=== PATIENT | female | born 1985 | race Caucasian/White ===

== ENCOUNTER 2016-11-19 09:37 | Inpatient (IN) | payer OTHER ==
[~2016-11-19] VITALS: Ht 167.6 cm; Wt 89.1 kg
[2016-11-19] VITALS (16 sets, daily range): BP systolic 90–143; BP diastolic 30–88
--- NOTE | ~2016-11-19 | PR ---
[place], [place] PROGRESS NOTE NAME: [facility] [id number] UNIT #: [id number] ROOM: [place] [address] DOCTOR: DALLAS BARNHART MD,STARR BIRTHDATE: [birth year] DOS: 11/20/2016 PULMONARY CRITICAL EVALUATION AND MANAGEMENT SUBJECTIVE: She has bronchoscopy that was done yesterday. The reduction of the hemoptysis noted, but the resolution still noted incomplete. The patient is continued on mechanical ventilation and feeding. She was noted elevation of temperature rectally 102.3 degrees Fahrenheit, currently noted afebrile. She has been continued with intravenous Diprivan for the sedation purposes. She has not been noted any acute hemodynamic instability as well. The mental status has been noted appropriate with reduction of the sedation. OBJECTIVE: VITAL SIGNS: The patient shows temperature of 102.3 degrees Fahrenheit, normal temperature, respiratory rate of 16-14, heart rate of 91-95, blood pressure 105/60-112/62. Intake for the patient is 4700, output 3000 mL. Pulse oxygen saturation was recorded 95% on 3 liters nasal cannula. HEENT: Showed the patient remains orally intubated. NECK: Supple. CARDIOVASCULAR: S1, S2 audible. LUNGS: Shows mild decreased breath sounds without any wheezing or crackles. ABDOMEN: Soft, nontender. LABORATORY DATA: Endotracheal aspirate of the patient of 11/19/2016 showed no bacterial growth, final results. The Gram stain of the bronchial washings of yesterday many white blood cells with few epithelial cells, no microorganisms seen. Preliminary culture was noted as normal mukesh. Blood cultures, no bacterial growth from 11/19/2016 of admission. BMP today: BUN 5, creatinine was normal. Potassium 3.4, chloride 113. There was no CBC done today. IMPRESSION: 1. The patient with acute aspiration pneumonia with severe tracheobronchitis with superficial with reduction of the hemoptysis and bleeding was noted with current suctioning. 2. The patient with acute drug overdose with narcotics medication. 3. History of nicotine abuse as well. PLAN OF TREATMENT: Continue antibiotics for the acute aspiration pneumonia, monitoring of the hemoptysis. Continue sedation. Once the patient's hemoptysis resolves or at least improves significantly, she will be assessed for possibility of liberation of mechanical ventilation. Assessment with the use of CPAP of 5, pressure support of 10, off sedation. In the meantime, continue the other previous plan of management including nutritional support. Ventilator bundle management. Usual care, other supportive therapy, plan of care and treatment. Further treatment changes will be done based on the progression of the illness. Total time for pulmonary critical evaluation and management was 35 minutes. [place], [place] PROGRESS NOTE NAME: HEATHER VILLA UNIT #: [id number] ROOM: [place] [address] DOCTOR: STARR HIDALGO MD BIRTHDATE: [birth year] STARR HAYNES MD CM:PNTRANS [id number] STARR BARNHART MD 11/21/162102 interface
--- NOTE | ~2016-11-19 | PR ---
[place], [place] PROGRESS NOTE NAME: HEATHER VILLA UNIT #: [id number] ROOM: 404 DOCTOR: DALLAS BARNHART MD,STARR BIRTHDATE: [birth year] DOS: 11/23/2016 PULMONARY PROGRESS NOTE SUBJECTIVE: She has been noted comfortable at this time and doing very well. The coughing has been gradually subsiding. The headache for the patient noted resolved. Denies symptoms of chest pain or any abdominal pain. OBJECTIVE: VITAL SIGNS: For the patient which has been recorded showed the temperature noted as normal, respiratory rate of 18, heart rate of 101, blood pressure 120/68. Pulse oxygen saturation of the patient noted on room air 95% saturation. HEENT: Examination shows head was atraumatic. Eyes nonicterus. NECK: Supple. CARDIOVASCULAR: S1, S2 audible. LUNGS: Noted without any wheezing or crackles at the present time. ABDOMEN: Soft, nontender. LABORATORY DATA: BMP of the patient this morning was noted as essentially normal. IMPRESSION: 1. Resolving acute tracheobronchitis of the patient, which was noted hemorrhagic, possibility of acute pneumonia with aspiration. 2. Resolution of the acute respiratory failure secondary acute drug overdose of the patient with heroin. PLAN OF TREATMENT: No changes in the plan of management at this time. Continue the patient on current therapy, plan of care as previously. Usual care, other supportive plan of management and treatment. STARR HAYNES MD CM:PNTRANS [id number] STARR BARNHART MD 11/24/16 0150 interface
--- NOTE | ~2016-11-19 | PROC NOTE ---
[place], [place] PROCEDURE NOTE NAME: [facility]ILL[facility] [id number] UNIT #: [id number] ROOM: [place] [address] DOCTOR: DALLAS BARNHART MD,STARR BIRTHDATE: [birth year] DOS: 11/20/2016 PROCEDURE: Fiberoptic bronchoscopy. PREOPERATIVE DIAGNOSES: Assessment of the patient's acute hemoptysis, current intubation, respiratory failure, acute drug overdose, possibility of aspiration. POSTOPERATIVE DIAGNOSES: Superficial hemorrhage noted of the endobronchial tree for this patient related to acute aspiration and mucosal injury without any evidence of any endobronchial lesions. There was no active significant bleeding noted at the present time. PROCEDURE DESCRIPTION: Informed consent obtained from the patient's power of assistant district attorney. She was continuously sedated. The bronchoscopy was done at the bedside in the negative pressure room in the intensive care unit. The patient's sedation was continued with IV Diprivan. The video fiberoptic bronchoscope was advanced through the endotracheal tube, lower part of the trachea. There were some hemorrhages noted for the patient around the tracheal lumen, seen through the endotracheal tube. Endotracheal tube was noted in appropriate position about 3 cm above the vijay level. Significant superficial bleeding for this patient was noted with area of hemorrhage of the mucosa of the right main stem bronchus, left main stem bronchus and the other endobronchial tree. Minimal oozing was noted if any. All secretions were suctioned out. Epinephrine 1:10,000 for this patient was lavaged of the endobronchial tree without any active bleeding noted subsequently. The bronchial washing cultures were sent for all the appropriate testing. The procedure was well tolerated by the patient. No acute changes in the patient's medical management at this time will be necessary. Continue other treatment, plan and management as previously. STARR HAYNES MD CM:PROCNOTE:PROCEDURE NOTE [id number] STARR BARNHART MD
--- NOTE | ~2016-11-19 | PR ---
[place], [place] PROGRESS NOTE [id number] UNIT #: [id number] ROOM: 404 DOCTOR: DALLAS BARNHART MD,STARR BIRTHDATE: [birth year] DOS: 11/22/2016 PULMONARY PROGRESS NOTE SUBJECTIVE: She was successfully liberated from mechanical ventilator yesterday. There was some secretion which has been noted blood tinged, removed prior to the liberation from mechanical ventilator. The patient has been noted comfortable at this time. Remains awake and alert, complaining of headache and also feels generalized anxiety. The patient denies symptoms of chest pain or any abdominal pain. OBJECTIVE: VITAL SIGNS: For the patient, which has been recorded showed the temperature noted as 100.4 degrees Fahrenheit, normal temperature, respiratory rate of 18-20, heart rate of 105-96, blood pressure 129/73. HEENT: Examination shows head was atraumatic. NECK: Supple. CARDIOVASCULAR: S1, S2 is audible. LUNGS: The patient was noted without any wheezing or crackles at the present time. ABDOMEN: Soft, nontender. Bowel sounds present. CENTRAL NERVOUS SYSTEM: The patient was currently noted without any focal deficit. EXTREMITIES: Noted without any edema. LABORATORY DATA: Bronchial washing culture for the patient, which were done on 11/20/2016 showed no bacterial growth, final results. CBC of the patient that was done for this patient was noted with WBC count 8.6, hemoglobin 10.4, hematocrit 31.2, platelet count was normal. CMP of the patient that was done today shows glucose 100, BUN 4, creatinine was normal. Potassium 3.3. Total protein 5.7, albumin 2.6. Blood culture report shows no bacterial growth from 11/19/2016. Endotracheal aspirate previously also noted without any abnormal bacterial growth, isolation. IMPRESSION: 1. The patient who has been currently noted at this time status post liberation of mechanical ventilator, acute respiratory failure with respiratory depression, acute hypercapnia secondary to history of drug overdose with heroin. 2. History of general anxiety disorder. 3. Depression. 4. Acute aspiration was noted in the lungs for this patient with suspected acute pneumonia, gram-positive organisms being already treated well with the antibiotics. Low grade the patient has been noted. PLAN OF TREATMENT: Addressing the headache for this patient and the other symptoms of the patient, management per primary care physician. From the pulmonary standpoint, the patient has been doing very well with current treatment plan of management, noted awake and alert. She could have resumption of previous home medication. Continue current antibiotics for the patient's acute aspiration pneumonia with clindamycin. Continue DVT prophylaxis at least [place], [place] PROGRESS NOTE NAME: HEATHER VILLA UNIT #: [id number] ROOM: 404 DOCTOR: DALLAS BARNHART MD,STARR BIRTHDATE: [birth year] for the next 24 hours. Continue bronchodilator, monitoring for any further episodes of hemoptysis. STARR HAYNES MD CM:PNTRANS [id number] STARR BARNHART MD 11/23/16 0920 interface
--- NOTE | ~2016-11-19 | CON ---
[place], [place] REPORT OF CONSULTATION NAME: HEATHER VILLA UNIT #: [id number] ROOM: [place] [address] DOCTOR: DALLAS BARNHART MD,STARR BIRTHDATE: [birth year] DOS: 11/20/2016 REASON FOR CONSULTATION: Assess the patient with acute respiratory failure also noted with hemoptysis. HISTORY OF PRESENT ILLNESS: This is a 31-year-old white female who has been brought to the hospital. The patient has been noted with loss of consciousness as the EMS was called for the patient by the boyfriend. EMS arrived for this patient and was given a few doses of Narcan, which was noted with some flailing of the extremities and improvement with wakefulness only transiently. Urine drug toxicology of the patient was also performed, which shows evidence of opioids. The patient had taken the opioid overdose in the home setting. The patient has been reported with findings of hemoptysis post-intubation which has been noted intermittently. Whenever the patient had been suctioned, she has been noted with hemorrhagic secretions on hemoptysis suctioning. The patient was given Narcan previously. She has been noted with vomiting as well. The possibility of aspiration for the patient was also considered. The patient has been continued on intravenous antibiotics. The patient was noted with urinary incontinence as well. Currently, the patient has been intubated, remains on the mechanical ventilator, getting intravenous Diprivan for this patient for the sedation purposes and noted comfortable on the mechanical ventilator. She has not been noted with any major hemodynamic instability, hypotension or other abnormalities or findings during this hospitalization at this time. REVIEW OF SYSTEMS: Cannot be performed as the patient is intubated and sedated with IV Diprivan. PAST MEDICAL HISTORY: Noted with history of anxiety, depression, and history of polysubstance abuse. PAST SURGICAL HISTORY: Noted, none previous surgery reported. SOCIAL HISTORY: She has been noted with history of use of the opiates and cocaine. Possibility of tobacco use has to be considered, but the details were unknown. FAMILY HISTORY: Unknown. HOME MEDICATIONS: Noted as the use of Paxil and Neurontin. DRUG ALLERGY HISTORY: Reported as PENICILLIN allergies. PHYSICAL EXAMINATION: GENERAL: This is a 31-year-old young female who has been currently intubated, noted on mechanical ventilation. VITAL SIGNS: Height of 5 feet 6 inches, weight of 199 pounds, BMI 31.6. Vital signs show a temperature of 101.2 degrees Fahrenheit to normal temperature with rectal temperature assessment. The respiratory rate of the patient ranged between 21 and 14, heart rate of 97 to 100, blood pressure 149/87 to 110/71. Intake for the patient since yesterday, intake 6.1 liters, the output 2700 mL, [place], [place] REPORT OF CONSULTATION NAME: HEATHER VILLA UNIT #: [id number] ROOM: [place] [address] DOCTOR: DALLAS BARNHART MD,[facility] BIRTHDATE: [birth year] positive fluid balance 3400 mL, pulse oxygen saturation of the patient recorded on 35% oxygen supplementation at this time as 98% saturation. HEENT: Currently, the patient is orally intubated. The orogastric tube is in place. The neck was supple. Head was atraumatic. CARDIOVASCULAR SYSTEM: S1, S2 audible. LUNGS: The patient was noted without any wheezing or crackles heard. Breaths are noted mild to moderately decreased bilaterally. ABDOMEN: Soft with moderate obesity, bowel sounds present without any tenderness. EXTREMITIES: The patient does not show edema, clubbing, cyanosis. CENTRAL NERVOUS SYSTEM: The patient has been noted with movement of the extremities as the patient's sedation has been decreased as per nursing staff. Further examination could not be performed. SKIN: Visible, does not show any lesions or rashes. MUSCULOSKELETAL: No gross deformities. LABORATORY DATA: PT/INR yesterday for the patient 11/19/2016 in the Emergency Room was noted normal. The CBC of the patient, 11/19/2016 in emergency room, WBC count 26.8, hemoglobin and hematocrit were normal, platelet count 444,000 and 91% segmented neutrophils. CMP for the patient that was done yesterday showed glucose of 293, BUN of 8, creatinine of 1.37. The CO2 of 19. Lactic acid was 6.9 yesterday on admission. Arterial blood gas pH of 7.22, pCO2 of 46, PO2 of 214 postintubation on assist control mode, mechanical ventilation 100% oxygen. Urinalysis does not show any major acute abnormalities. The acetaminophen level for this patient was noted as negative. ETOH was negative. Followup lactic acid 4.3, then 3.3. The arterial blood gas repeated later on, pH of 7.33, pCO2 of 39, pO2 of 68.2. CK-MB and troponin which were done for this patient, first CK-MB and troponin for this patient were noted as normal yesterday. The second set of CK-MB and troponin of the patient, which noted in the later part of the evening, on 11/19/2016, CPK 300, MB of 5.6, and troponin ____. CK-MB, troponin repeated again on 11/20/2016 shows CPK of 387, MB of 5.7 with a normal troponin for the patient this morning. CBC this morning, WBC count 11.5, hemoglobin 11.4, hematocrit 33.8, platelet count 260,000. CMP for the patient that was done this morning, normal BUN and creatinine noted. Glucose was normal. Potassium 3.0, chloride 111, albumin 2.7, total protein of 5.6. Arterial blood gas for this morning with adjustment on mechanical ventilation 35% oxygen, pH of 7.36, pCO2 of 40.8, pO2 of 87.5. Endotracheal aspirate Gram stain shows many white blood cells, no microorganisms, normal mukesh noted preliminary with culture results. The review of the radiology data was personally performed for patient for pulmonary problems. The chest x-ray of the patient of 11/19/2016 shows endotracheal intubation, endotracheal tube is approximately 3 cm above the vijay level. The NG tube was noted in the stomach. Small infiltration of the patient in the right mid and the right upper lobe cannot be completely excluded. The chest x-ray that was done this morning shows improvement of the aeration of the lung with the resolution of previously noted infiltration for this patient. There were no findings of congestive heart failure, pleural fluid formation or other abnormalities. CT scan of the head, which was done without contrast yesterday was reported by the radiologist as normal CT scan of the brain for [place], [place] REPORT OF CONSULTATION NAME: HEATHER VILLA UNIT #: [id number] ROOM: [place] [address] DOCTOR: DALLAS BARNHART MD,STARR BIRTHDATE: [birth year] this patient's age. IMPRESSION: 1. The patient who has been currently admitted to the hospital with acute drug overdose secondary to use of narcotics medication, most likely illicit drugs for this patient would be considered. 2. History of polysubstance abuse including cocaine from the past. 3. Acute hypercapnic respiratory failure and hypoxia with possibility of acute aspiration, chemical pneumonitis versus bacterial infection would be considered. 4. Hemoptysis for this patient, etiology unclear, requires further assessment. Possibility of bleeding from the intubation or other etiology, any bronchial lesion or other abnormalities to be assessed. 5. History of chronic moderate obesity. 6. History of nicotine abuse previously noted as well. 7. Acute kidney injury. The patient with severe lactic acidosis secondary to acute sepsis in a patient with hyperperfusion secondary to the acute drug overdose would be considered. 8. Elevation in CPK with early rhabdomyolysis related to the opioid overdose would be considered. PLAN OF TREATMENT: Continue mechanical ventilation. The patient ventilator bundle management has been initiated. Monitor the CPK. Intravenous fluid for the patient now to keep the patient with adequate hydration. Monitor urinary output, the elevation of creatinine in a patient with acute kidney injury secondary to current sepsis or volume depletion. The patient has been already corrected with a normal creatinine noted at the present time. Bronchoscopy planned to be done for the patient this morning at the bedside for this patient for further assessment of hemoptysis. The feeding for the patient will be given for nutrition support. Continue sedation with IV Diprivan. Peridex rinse for the patient was ordered for the ventilator bundle management. Total time on pulmonary critical evaluation and management, consultation for the patient was 40 minutes. STARR HAYNES MD CM:CONSTR:REPORT OF CONSULTATION 1226 11/21/16 0403 interface
--- NOTE | ~2016-11-19 | CON ---
[place], [place] REPORT OF CONSULTATION NAME: TATYANA VILLA UNIT #: [id number] ROOM: 404 DOCTOR: SPENSER GARZA ED.D (YAMILEX) BIRTHDATE: [birth year] DOS: 11/22/2016 HISTORY OF PRESENT ILLNESS: Tatyana Villa is a 31-year-old female referred for evaluation following an overdose of heroin. At the present time, this patient is in the intensive care unit at [facility]. She states she is and has 3 children. She states that she has substance abuse problems related to cocaine, and in addition, she reports chronic depression. This patient was awake, alert, and oriented in all 3 spheres. She indicated she was not trying to kill herself, but overdosed on heroin and stated this is the first time she ever tried heroin. She does follow with Nilda Mazariegos and Sloane Chrsi at the counseling Center for counseling and her medications. Her medications have recently included Celexa. She does not appear to be having any type of active hallucinations whatsoever. She states she does have a chronic history of cocaine abuse and depression and was not suicidal, but just overdosed on her medications and would like to continue to follow up at the counseling center for outpatient treatment. In my opinion, this patient may be discharged home when medically stable to follow up at the counseling center. DIAGNOSES: 1. Major depressive disorder, recurrent. 2. Cocaine abuse. RECOMMENDATIONS: 1. The patient to follow up at the counseling center when she is discharged. 2. The patient may be discharged home when medically stable due to the fact she is not suicidal. Thank you very much for this referral. SPENSER GARZA ED.D CM:CONSTR:REPORT OF CONSULTATION 1332 11/23/16 1011 interface
[2016-11-19 10:16] LABS: HEMATOCRIT 43.9 % (37.0-47.0); HEMOGLOBIN 15.1 g/dl (12.0-16.0); MEAN CELL VOLUME 92.6 fl (81.0-99.0); MEAN CORPUSCULAR HGB 31.9 pg (27.0-31.0); MEAN CORPUSCULAR HGB CONC 34.4 g/dl (33.0-37.0); MEAN PLATELET VOLUME 9.2 fl (9.6-12.3); PLATELET COUNT AUTOMATED 440 10*3/uL (130-400); RED BLOOD COUNT 4.74 10*6/uL (4.10-5.10); RED CELL DISTRI WIDTH 11.9 % (0-14.5); WHITE BLOOD COUNT 26.8 10*3/uL (4.8-10.8)
[2016-11-19 10:26] LABS: PROTHROMBIN TIME 10.8 SECONDS (9.0-12.4)
[2016-11-19 10:36] LABS: ALBUMIN 3.5 gm/dl (3.1-4.5); ALKALINE PHOSPHATASE 82 U/L (45-117); BILIRUBIN, TOTAL 0.3 mg/dl (0.2-1.0); BUN 8 mg/dl (7-24); CARBON DIOXIDE 19 mmol/L (21-32); CHLORIDE 104 mmol/L (98-107); CPK 160 U/L (26-192); EST GLOM FILT AFRICAN AMERICAN 56 ml/min; GLUCOSE 292 mg/dL (65-99); POTASSIUM 3.5 mmol/L (3.5-5.1); SGOT/AST 29 IU/L (3-35); SGPT/ALT 37 U/L (12-78); SODIUM 137 mmol/L (136-145); TOTAL PROTEIN 7.1 gm/dL (6.4-8.2)
[2016-11-19 10:37] LABS: ATYPICAL LYMPHS 1 % (0-0); CKMB 2.3 ng/ml (0.5-3.6); LYMPHOCYTE # 2.1 10*3/uL (1.3-4.4); MONOCYTE # 0.3 10*3/uL (0.1-1.0); NEUTROPHIL # 24.4 10*3/uL (2.3-7.9); NEUTROPHILS 91 % (47-73); PLATELET SUFFICIENCY HIGH (NORMAL); TOTAL CELLS COUNTED 100 #CELLS
[2016-11-19 10:37] LABS: ABG HCO3 18.6 mmol/l (22-26); ABG TEMPERATURE 97.9 F (98.0-99.0); ARTERIAL BLOOD GAS PH 7.224 (7.35-7.45)
[2016-11-19 10:38] LABS: TROPONIN I 0.038 ng/ml (<0.045)
[2016-11-19 10:39] LABS: ABG BASE EXCESS -8.9 mmol/L (-2.0-2.0)
[2016-11-19 10:43] LABS: BILIRUBIN NEGATIVE (NEGATIVE); BLOOD TRACE-INTACT (NEGATIVE); CLARITY CLEAR (CLEAR); COLOR YELLOW (YELLOW); GLUCOSE 3+ (NEGATIVE); KETONE NEGATIVE (NEGATIVE); LEUKO ESTERASE NEGATIVE (NEGATIVE); NITRITE NEGATIVE (NEGATIVE); PH 6.5 (5.0-9.0); PROTEIN TRACE (NEGATIVE); SPECIFIC GRAVITY 1.015 (1.005-1.030); UROBILINOGEN 0.2 E.U./dl (0.2-1.0)
[2016-11-19 10:53] LABS: RBC 0-2 rbc/hpf (0-2)
[2016-11-19 10:54] LABS: URINE REFLEX COMMENT NO (NO)
[2016-11-19 10:59] LABS: URINE AMPHETAMINES < 1000 (1000ng/ml); URINE BARBITURATES < 200 (200ng/ml); URINE COCAINE < 300 (300ng/ml)
[2016-11-19 12:12] LABS: LA>2 REFLEX 2 HR DRAW NOW
[2016-11-19] MEDS ORDERED: PAROXETINE HCL20 MG PO (12:22)
[2016-11-19] MEDS ORDERED: NEURONTIN300 MG PO ×2 (12:22→12:33)
[2016-11-19] MEDS ORDERED: PAXIL20 M1 PO (12:34)
[2016-11-19 12:45] LABS: LA>2 RFLX FOLLOW UP AT 2 HRS 4.2 mmol/L (0.4-2.0)
[2016-11-19 14:17] LABS: ABG CO2 CONTENT 20.5 mmol/L (23-27); ABG HCO3 19.2 mmol/l (22-26); ABG TEMPERATURE 98.7 F (98.0-99.0); ARTERIAL BLOOD GAS PH 7.271 (7.35-7.45); ARTERIAL BLOOD GAS PO2 79.3 mmHg (80-90)
[2016-11-19 14:26] LABS: LA>2 REFLEX 4 HR DRAW NOW
[2016-11-19 17:05] LABS: ABG BASE EXCESS -4.8 mmol/L (-2.0-2.0); ABG CO2 CONTENT 21.3 mmol/L (23-27); ABG HCO3 20.1 mmol/l (22-26); ABG TEMPERATURE 98.7 F (98.0-99.0); ARTERIAL BLOOD GAS PH 7.332 (7.35-7.45); ARTERIAL BLOOD GAS PO2 68.2 mmHg (80-90)
[2016-11-19 18:40] LABS: CKMB 5.6 ng/ml (0.5-3.6)
[2016-11-19 18:41] LABS: TROPONIN I 0.055 ng/ml (<0.045)
[2016-11-20] VITALS (13 sets, daily range): BP systolic 123–159; BP diastolic 57–88
[2016-11-20 00:45] LABS: TROPONIN I 0.04 ng/ml (<0.045)
[2016-11-20 00:47] LABS: CKMB 5.7 ng/ml (0.5-3.6)
[2016-11-20 06:05] LABS: ALBUMIN 2.7 gm/dl (3.1-4.5); ALKALINE PHOSPHATASE 53 U/L (45-117); BILIRUBIN, TOTAL 0.4 mg/dl (0.2-1.0); BUN 5 mg/dl (7-24); CARBON DIOXIDE 26 mmol/L (21-32); CHLORIDE 111 mmol/L (98-107); CHOLESTEROL 118 mg/dL (<200); EST GLOM FILT AFRICAN AMERICAN > 60 ml/min; FREE T4 1.07 ng/dl (0.76-1.46); GLUCOSE 114 mg/dL (65-99); HDL CHOLESTEROL 57 mg/dl (40-60); LDL CHOLESTEROL 49 mg/dL (9-159); MAGNESIUM 1.9 mg/dL (1.5-2.1); SGOT/AST 23 IU/L (3-35); SGPT/ALT 27 U/L (12-78); SODIUM 143 mmol/L (136-145); TOTAL PROTEIN 5.6 gm/dL (6.4-8.2); TRIGLYCERIDES 61 mg/dl (<150); TROPONIN I 0.023 ng/ml (<0.045); VLDL CHOLESTEROL 12 mg/dL (6-40)
[2016-11-20 06:06] LABS: BASO % 0.3 % (0.0-1.0); EOS # 0.1 10*3/uL (0.0-0.4); EOS % 0.7 % (1.0-4.0); IG # 0.1 10*3/uL (0.0-0.1); LYMPH # 1.2 10*3/uL (1.3-4.4); LYMPH % 10.1 % (27.0-41.0); MEAN CELL VOLUME 92.6 fl (81.0-99.0); MEAN CORPUSCULAR HGB 31.2 pg (27.0-31.0); MEAN CORPUSCULAR HGB CONC 33.7 g/dl (33.0-37.0); MEAN PLATELET VOLUME 9.6 fl (9.6-12.3); MONO # 0.6 10*3/uL (0.1-1.0); MONO % 5.3 % (3.0-9.0); NEUT # 9.6 10*3/uL (2.3-7.9); NEUT % 83.2 % (47.0-73.0); RED BLOOD COUNT 3.65 10*6/uL (4.10-5.10); RED CELL DISTRI WIDTH 12.2 % (0-14.5); WHITE BLOOD COUNT 11.5 10*3/uL (4.8-10.8)
[2016-11-20 06:09] LABS: HEMATOCRIT 33.8 % (37.0-47.0); HEMOGLOBIN 11.4 g/dl (12.0-16.0); PLATELET COUNT AUTOMATED 260 10*3/uL (130-400)
[2016-11-20 06:10] LABS: HEMOGLOBIN A1c 5.1 % (4.8-5.6)
[2016-11-20 06:12] LABS: CKMB 5.5 ng/ml (0.5-3.6)
[2016-11-20 06:28] LABS: ABG CO2 CONTENT 23.7 mmol/L (23-27); ABG HCO3 22.5 mmol/l (22-26); ABG TEMPERATURE 99.6 F (98.0-99.0); ARTERIAL BLOOD GAS PH 7.363 (7.35-7.45); ARTERIAL BLOOD GAS PO2 87.5 mmHg (80-90)
[2016-11-20 06:54] LABS: VITAMIN D, 25-HYDROXY 17.1 ng/mL (30-100)
[2016-11-20 06:55] LABS: FOLIC ACID 5.58 ng/mL (>5.38)
[2016-11-21] VITALS (10 sets, daily range): BP systolic 103–125; BP diastolic 48–87
[2016-11-21 05:42] LABS: ABG BASE EXCESS -1.2 mmol/L (-2.0-2.0); ABG CO2 CONTENT 23.9 mmol/L (23-27); ABG HCO3 22.8 mmol/l (22-26); ABG TEMPERATURE 99.1 F (98.0-99.0); ARTERIAL BLOOD GAS PH 7.4 (7.35-7.45); ARTERIAL BLOOD GAS PO2 66.3 mmHg (80-90)
[2016-11-21 05:58] LABS: BASO % 0.1 % (0.0-1.0); EOS # 0.2 10*3/uL (0.0-0.4); EOS % 2.5 % (1.0-4.0); HEMOGLOBIN 11.1 g/dl (12.0-16.0); LYMPH # 1.2 10*3/uL (1.3-4.4); LYMPH % 12.8 % (27.0-41.0); MEAN CELL VOLUME 93.8 fl (81.0-99.0); MEAN CORPUSCULAR HGB 31.5 pg (27.0-31.0); MEAN CORPUSCULAR HGB CONC 33.6 g/dl (33.0-37.0); MEAN PLATELET VOLUME 9.3 fl (9.6-12.3); MONO # 0.9 10*3/uL (0.1-1.0); MONO % 9.2 % (3.0-9.0); NEUT # 6.9 10*3/uL (2.3-7.9); PLATELET COUNT AUTOMATED 232 10*3/uL (130-400); RED BLOOD COUNT 3.52 10*6/uL (4.10-5.10); WHITE BLOOD COUNT 9.2 10*3/uL (4.8-10.8)
[2016-11-21 06:25] LABS: BUN 5 mg/dl (7-24); CARBON DIOXIDE 25 mmol/L (21-32); CHLORIDE 113 mmol/L (98-107); EST GLOM FILT AFRICAN AMERICAN > 60 ml/min; GLUCOSE 115 mg/dL (65-99); MAGNESIUM 2.1 mg/dL (1.5-2.1); PHOSPHOROUS 2.5 mg/dL (2.5-4.9); POTASSIUM 3.4 mmol/L (3.5-5.1); SODIUM 145 mmol/L (136-145)
[2016-11-21 13:05] LABS: ACID FAST SPEC PROCESSING Concentration (.)
[2016-11-22] VITALS: BP 100/70
[2016-11-22 04:00] VITALS: BP 126/76
[2016-11-22 05:55] LABS: BASO % 0.2 % (0.0-1.0); EOS # 0.2 10*3/uL (0.0-0.4); HEMATOCRIT 31.2 % (37.0-47.0); HEMOGLOBIN 10.4 g/dl (12.0-16.0); LYMPH # 1.3 10*3/uL (1.3-4.4); LYMPH % 14.7 % (27.0-41.0); MEAN CELL VOLUME 92.9 fl (81.0-99.0); MEAN CORPUSCULAR HGB CONC 33.3 g/dl (33.0-37.0); MEAN PLATELET VOLUME 9.4 fl (9.6-12.3); MONO # 0.6 10*3/uL (0.1-1.0); MONO % 7.2 % (3.0-9.0); NEUT # 6.5 10*3/uL (2.3-7.9); NEUT % 75.4 % (47.0-73.0); PLATELET COUNT AUTOMATED 238 10*3/uL (130-400); RED BLOOD COUNT 3.36 10*6/uL (4.10-5.10); RED CELL DISTRI WIDTH 11.9 % (0-14.5); WHITE BLOOD COUNT 8.6 10*3/uL (4.8-10.8)
[2016-11-22 06:06] LABS: CHLORIDE 112 mmol/L (98-107); GLUCOSE 100 mg/dL (65-99); POTASSIUM 3.3 mmol/L (3.5-5.1); SODIUM 145 mmol/L (136-145)
[2016-11-22 06:14] LABS: ALBUMIN 2.6 gm/dl (3.1-4.5); ALKALINE PHOSPHATASE 49 U/L (45-117); BILIRUBIN, TOTAL 0.5 mg/dl (0.2-1.0); BUN 4 mg/dl (7-24); CARBON DIOXIDE 25 mmol/L (21-32); EST GLOM FILT AFRICAN AMERICAN > 60 ml/min; SGOT/AST 22 IU/L (3-35); SGPT/ALT 22 U/L (12-78); TOTAL PROTEIN 5.7 gm/dL (6.4-8.2)
[2016-11-22 08:00] VITALS: BP 129/73
[2016-11-22 12:00] VITALS: BP 130/74
[2016-11-22 16:00] VITALS: BP 102/88
[2016-11-22 20:00] VITALS: BP 131/86
[2016-11-23] VITALS: BP 131/72
[2016-11-23 06:56] LABS: BUN 4 mg/dl (7-24); CARBON DIOXIDE 24 mmol/L (21-32); CHLORIDE 110 mmol/L (98-107); EST GLOM FILT AFRICAN AMERICAN > 60 ml/min; GLUCOSE 90 mg/dL (65-99); POTASSIUM 3.5 mmol/L (3.5-5.1); SODIUM 142 mmol/L (136-145)
[2016-11-23 08:00] VITALS: BP 120/68
== END 2016-11-23 11:00 | disposition home or self-care (01) | DRG 871 ==
LOC: ED 09:37 → EDHOLD 12:21 → ICCU 12:21 → EDHOLD 12:34 → ICCU 13:10 → 4E 11-22 13:02
PROVIDERS: Emergency Medicine; Internal Medicine; Internal Medicine Critical Care Medicine; Student in an Organized Health Care Education/Training Program
PROC: 5A1945Z Respiratory Ventilation, 24-96 Consecutive Hours (ICD-10-PCS; 2016-11-19)
PROC: 0BH17EZ Insertion of Endotracheal Airway into Trachea, Via Natural or Artificial Opening (ICD-10-PCS; 2016-11-19)
PROC: 0BC78ZZ Extirpation of Matter from Left Main Bronchus, Via Natural or Artificial Opening Endoscopic (ICD-10-PCS; principal; 2016-11-20)
PROC: 0BC38ZZ Extirpation of Matter from Right Main Bronchus, Via Natural or Artificial Opening Endoscopic (ICD-10-PCS; 2016-11-20)
DX: A41.9 Sepsis, unspecified organism (principal); R65.21 Severe sepsis with septic shock; N17.0 Acute kidney failure with tubular necrosis; J96.01 Acute respiratory failure with hypoxia; J96.02 Acute respiratory failure with hypercapnia; J69.0 Pneumonitis due to inhalation of food and vomit; R04.2 Hemoptysis; F33.9 Major depressive disorder, recurrent, unspecified; E83.51 Hypocalcemia; R73.9 Hyperglycemia, unspecified; F41.9 Anxiety disorder, unspecified; F19.10 Other psychoactive substance abuse, uncomplicated; F11.10 Opioid abuse, uncomplicated; J20.9 Acute bronchitis, unspecified; T40.601A Poisoning by unspecified narcotics, accidental (unintentional), initial encounter; F14.10 Cocaine abuse, uncomplicated; E66.8 Other obesity; T40.1X1A Poisoning by heroin, accidental (unintentional), initial encounter; Z79.899 Other long term (current) drug therapy; Z91.040 Latex allergy status; Z88.0 Allergy status to penicillin; Z68.33 Body mass index [BMI] 33.0-33.9, adult

== ENCOUNTER 2017-09-22 12:40 | Emergency (ER) | payer OTHER ==
[~2017-09-22] VITALS: Ht 160 cm; Wt 77.1 kg
[~2017-09-22 12:40] MED LIST: NEURONTIN300 MG PO; PAROXETINE HCL20 MG PO; PAXIL20 M1 PO
[2017-09-22] MEDS ORDERED: PROZAC20 MG PO (13:06)
[2017-09-22 13:49] LABS: BILIRUBIN NEGATIVE (NEGATIVE); BLOOD NEGATIVE (NEGATIVE); CLARITY CLEAR (CLEAR); COLOR YELLOW (YELLOW); GLUCOSE NEGATIVE (NEGATIVE); KETONE NEGATIVE (NEGATIVE); LEUKO ESTERASE 1+ (NEGATIVE); NITRITE NEGATIVE (NEGATIVE); SPECIFIC GRAVITY <= 1.005 (1.005-1.030); UROBILINOGEN 0.2 E.U./dl (0.2-1.0)
[2017-09-22] MEDS ORDERED: ZOVIRAX400 MG PO ×2 (14:33→14:59)
[2017-09-22] MEDS ORDERED: Motrin,Rufen800 MG PO ×2 (14:33→14:59)
== END 2017-09-22 14:40 | disposition home or self-care (01) ==
LOC: ED 12:40
PROVIDERS: Physician Assistant
DX: L98.8 Other specified disorders of the skin and subcutaneous tissue (principal); Z88.5 Allergy status to narcotic agent; Z91.040 Latex allergy status